=== PATIENT | male | born 1995 | race Caucasian/White ===

== ENCOUNTER 2021-01-15 19:33 | Emergency (ER) | payer SELFPAY ==
[2021-01-15 19:46] VITALS: BP 112/78; PULSE 106; RESP 18; TEMP 36.8; O2SAT 95; BMI 27.5
--- NOTE | 2021-01-15 19:57 | XRR_ITS ---
PROCEDURE INFORMATION: Exam: XR Left Forearm Exam date and time: 01/15/2021 7:57 PM Age: 25 years old Clinical indication: Injury or trauma; Blunt trauma (contusions or hematomas); Arm, lower; Left; Injury details: Playing football and heard a pop ; Additional info: Arm injury TECHNIQUE: Imaging protocol: XR Left forearm. Views: 2 views. COMPARISON: No relevant prior studies available. FINDINGS: Bones/joints: No evidence of fracture. Ice pack partially obscures bones and soft tissues. Soft tissues: Unremarkable as visualized. XR/XR forearm LT 2V [id number] IMPRESSION: No evidence of fracture.
[2021-01-15] MEDS: ondansetron 2 mg/ML SDV 2 mL 4 MG IVP (20:35)
[2021-01-15 20:36] VITALS: RESP 16; O2SAT 97
[2021-01-15] MEDS: morphine 4 mg/mL SDV 1 mL IVP (20:36)
--- NOTE | 2021-01-15 21:10 | ED_ITS ---
HPI - Extremity Problem General: Chief complaint: Extremity Injury, Upper Stated complaint: left arm injury Time Seen by Provider: 01/15/21 19:57 Source: patient and family (mother) Mode of arrival: ambulatory Limitations: no limitations History of Present Illness: HPI Narrative: This 25-year-old male was playing football and when he extended his left upper extremity to catch a ball he got caught between 2 on [place] players. The patient says that he felt and heard a pop and was convinced that he had fractured a bone in his left forearm. He has severe pain just distal to his elbow and has limited movement of the elbow. He is also unable to supinate his left forearm not sure if it is because of pain or injury. He has some tingling in his fourth and fifth finger on the left dorsally. He is here to be evaluated for this. MD Complaint: extremity pain Onset (ago): minute(s) (30) Pain Consistency: constant Location: left and upper extremity Severity scale (1-10): 10 Quality: sharp Radiation: none Relieving factors: nothing Exacerbating factors: range of motion, weight bearing and palpation Associated symptoms: Deny arthralgias, chest pain, fever(s), myalgias, rash or short of breath Review of Systems General: Reports: 10 or more systems reviewed and unremarkable except in HPI and below Const: Denies: fever(s) Card: Denies: chest pain Skin/Breast: Denies: rash Physical Exam Const: COMMON NORMALS: average body habitus, patient oriented x3, no limitations, healthy appearing, alert and well nourished GENERAL APPEARANCE: in distress (painful) HENMT: COMMON NORMALS: normocephalic, atraumatic and moist oral mucous mem branes HEAD & SCALP: normocephalic and atraumatic Neck/C-Spine: COMMON NORMALS: no meningeal signs and no JVD Resp: COMMON NORMALS: normal respiratory effort, No retractions, No use of accessory muscles, clear to auscultation bilaterally and percussion normal AUSCULTATION: clear to auscultation bilaterally PERCUSSION: percussion normal Cardio: COMMON NORMALS: no JVD, regular rate, regular rhythm, S1 normal heart sound present, S2 normal heart sound present, No gallops present (Cardio), No clicks present (Cardio), No murmurs present (Cardio), No rub (Cardio) and Peripheral pulses 2+ throughout RATE: regular rate RHYTHM: regular rhythm HEART SOUNDS: S1 normal heart sound present and S2 normal heart sound present PERIPHERAL PULSES: Peripheral pulses 2+ throughout GI: COMMON NORMALS: Normal to inspection, nondistended, normoactive bowel sounds present, Soft to palpation, non-tender, No hepatosplenomegaly present, no masses and no bruits PALPATION: Yes Soft to palpation and Yes No hepatosplenomegaly present Extremity: COMMON NORMALS: normal to inspection, full ROM, capillary refill normal, no calf tenderness and no pedal edema LEFT UPPER EXTREMITY: Yes lower arm (no obvious swelling or deformity) Left lower arm: Yes inspection (wrapped in a makeshifft splint and ice), Yes palpation (marked tenderness just distal to elbow and the distal biceps tendon) and Yes neurovascular exam (intact, radial pulse palpable and strong, brisk cap refill, normal sensatio) Neuro: COMMON NORMALS: patient oriented x3 SENSORIUM/ORIENTATION: Yes alert MENINGEAL SIGNS: Yes no meningeal signs Skin: COMMON NORMALS: no rashes or lesions noted, no wounds, turgor normal, no jaundice, no petechiae and no mottling GENERAL SKIN EXAM: no rashes or lesions noted and turgor normal Course Reevaluation(s): Reevaluation #1: Discussed his imaging findings with him and his mother. Explained that there is no fracture and examination is consistent with a rupture of his distal biceps tendon. Pain is still uncontrolled and morphine did not help his pain. We will give him a dose of intravenous Dilaudid and reevaluate him. He voiced understanding and is in agreement with the plan Time: 21:12 Reevaluation #2: Pain is relieved after intravenous hydromorphone. Explained that he will need an MRI to evaluate his biceps tendon and his primary care provider should be able to order it. We will also refer him to orthopedic surgery for further evaluation and definitive management. We will discharge him home in an arm sling and a prescription for pain medication. He is sent home with 2 tablets of hydrocodone. Time: 21:42 Vital Signs: Vital signs: Vital Signs Temperature 98.2 F 01/15/21 21:57 Pulse Rate 73 01/15/21 21:57 Respiratory Rate 17 01/15/21 21:57 Blood Pressure 135/64 01/15/21 21:57 Pulse Oximetry 95 01/15/21 21:57 MDM - Extremity (Nontraumatic) MDM Narrative: Medical decision making narrative: 25-year-old male who had a spotting accident and thought he had fractured some bones of his left forearm. X-ray was negative for fracture or dislocation. Examination most likely supports a tendon rupture and the most probable tendon is the biceps tendon. He is discharged home with pain medication after his pain was relieved in the emergency department. He will be referred to orthopedic surgery for further evaluation and management Medical Records: Attestation: I reviewed the patient's medical records. Imaging Data^: Xray Ortho: Attestation: I personally reviewed and interpreted this imaging study as follow s: Radiologist's impression: Joe [address], [place] [address]ROes ReportSigned Patient: Rory Arciniega #: [id number]: 1995 cct#:[id number]/Sex: 25 / MADM Date: 01/15/21Loc: ERRoom/Bed:Attending Dr: Ordering Provider/Ordering MD: Bird Jackson MD, [facility] [place] Date of Service: 01/15/21 Procedure(s): XR forearm LT 2V [id number] Accession Number(s): [id number] Report Number: [id number] PROCEDURE INFORMATION: Exam: XR Left Forearm Exam date and time: 01/15/2021 7:57 PM Age: 25 years old Clinical indication: Injury or trauma; Blunt trauma (contusions or hematomas); Arm, lower; Left; Injury details: Playing football and heard a pop ; Additional info: Arm injury TECHNIQUE: Imaging protocol: XR Left forearm. Views: 2 views. COMPARISON: No relevant prior studies available. FINDINGS: Bones/joints: No evidence of fracture. Ice pack partially obscures bones and soft tissues. Soft tissues: Unremarkable as visualized. XR/XR forearm LT 2V [id number] IMPRESSION: No evidence of fracture. Dictated By:Shane Machuca MDSigned By:Shane Machuca MDSigned Date/Time:01/15/212058DD/ 56 Discharge Plan Discharge Patient Disposition: Home Clinical Impression: Biceps rupture, distal Qualifiers: Encounter type: initial encounter Laterality: left Qualified Code(s): S46.212A - Strain of muscle, fascia and tendon of other parts of biceps, left arm, initial encounter Condition: Stable Prescriptions: New hydrocodone-acetaminophen 5-325 mg tablet 1 tab PO Q4H PRN (Reason: biceps rupture) Qty: 20 RF: 0 Discharge Orders: Discharge ED (Routine); Ordered 01/15/21 Ordered By: Bird Jackson Discharge Diet: Usual diet Discharge Activity: Increase activity as tolerated Patient Instructions: Biceps Tendon Rupture, Opioid Safety Activity Restrictions/Additional Instructions: Return for any new or worsening symptoms. Follow-up with your primary care provider within 3 days for referral for an MRI. The examination findings are consistent with a rupture of your biceps tendon. Take the pain medicine as needed for pain. Use a sling for comfort. He will also be referred to orthopedic surgery for further evaluation and management. Coding Level of Care Code ED Geriatric Aide for Laith Agosto
[2021-01-15 21:25] VITALS: RESP 17; O2SAT 97
[2021-01-15] MEDS: HYDROmorphone 1 mg/mL INJ 1 mL IVP (21:25)
--- NOTE | 2021-01-15 21:56 | PC.NURSE ---
Patient sent home with 2 tabs hydrocodone 5mg/APAP 325 mg for home per provider order.
[2021-01-15 21:57] VITALS: BP 135/64; PULSE 73; RESP 17; TEMP 36.8; O2SAT 95
--- NOTE | 2021-01-17 09:12 | PC.SOCIAL ---
called Sol at [facility] regarding referral for left bicep tendon rupture per Dr Jackson. She will review and call patient with the appointment.
--- NOTE | 2021-01-28 14:35 | DCPLANNER ---
Patient had a follow up appointment scheduled for 01.19.[address] Johnson at [facility] - patient did attend appointment.
== END 2021-01-15 22:01 | disposition home or self-care (01) ==
PROVIDERS: Emergency Provider Family Medicine
DX: S46.212A Strain of muscle, fascia and tendon of other parts of biceps, left arm, initial encounter (principal); W51.XXXA Accidental striking against or bumped into by another person, initial encounter; Y93.61 Activity, american tackle football
CPT/HCPCS: 73090; 96374; 96375; 99284; J1170; J2270; J2405

== ENCOUNTER → 2021-01-19 13:33 | Outpatient (BNVA) | payer SELFPAY | PROVIDERS: Referring Provider Family Medicine; Visit Provider Specialist | DX: S46.212A Strain of muscle, fascia and tendon of other parts of biceps, left arm, initial encounter (principal); X58.XXXA Exposure to other specified factors, initial encounter | CPT/HCPCS: 73080 ==

== ENCOUNTER 2021-02-07 08:57 | Outpatient (CLI) | payer SELFPAY ==
--- NOTE | 2021-02-07 09:29 | MR_ITS ---
WS: [id number] MRI OF THE LEFT ELBOW WITHOUT GADOLINIUM ENHANCEMENT. INDICATION: Left elbow injury TECHNIQUE: Axial T1 and T2 coronal T1 coronal PD coronal STIR sagittal PD axial 3-D FSPGR FINDINGS: Normal anatomic alignment. Small joint effusion. Diffuse edema involving the lateral lindsey l epicondyle and capitellum laterally consistent with contusion and osteochondral fracture. Associate d cortical irregularity with suggestion of small visualized fracture lines involving the capitellum a nd lateral humeral epicondyle. No significant edema in the adjacent radial head or neck. Ulna is norm al in appearance. Normal olecranon. Common extensor and radial collateral ligaments appear intact. No rmal medial epicondyle and trochlea. Visualized distal humeral shaft is normal. Mild distention of the posterior fat pad with joint effusi on. Mild edema in the soft tissues about the elbow. Normal common flexor tendon complex. MR/MR elbow LT wo con* [id number] IMPRESSION: 1. Diffuse edema involving the lateral humeral epicondyle and capitellum with mild cortical irregularity consistent with contusion and nondisplaced osteochon dral fracture. 2. Normal bone marrow signal in the adjacent radial head and neck. 3. Common extensor and flexor compartment tendons are normal in appearance. No rmal radial collateral ligament. 4. Otherwise normal bone marrow signal in the bony structures. 5. Small joint effusion with displacement of the anterior and posterior fat pa ds.
== END 2021-02-07 08:58 | disposition home or self-care (01) ==
PROVIDERS: Visit Provider Specialist
DX: S46.212A Strain of muscle, fascia and tendon of other parts of biceps, left arm, initial encounter (principal); X58.XXXA Exposure to other specified factors, initial encounter; M25.422 Effusion, left elbow
CPT/HCPCS: 73221